=== PATIENT | female | born 1970 | race Caucasian/White ===

== ENCOUNTER 2018-11-08 21:20 | Emergency (ER) | payer MEDICAID ==
[~2018-11-08] VITALS: Ht 157.5 cm; Wt 71.0 kg
[~2018-11-08 21:20] MED LIST: SITA1TAB8
[2018-11-09] MEDS ORDERED: IBUPROFEN 600MG TABLET PO ONE (00:15)
[2018-11-09 03:13] VITALS: BP 107/52
== END 2018-11-09 03:17 | disposition home or self-care (01) ==
LOC: ER 21:20
DX: R07.89 Other chest pain (principal); E11.9 Type 2 diabetes mellitus without complications; E78.00 Pure hypercholesterolemia, unspecified; Z87.19 Personal history of other diseases of the digestive system
CPT/HCPCS: 71045; 76604; 81025; 99284